=== PATIENT | male | born 1945 | race Caucasian/White ===

== ENCOUNTER → 2020-06-05 14:00 | Outpatient (CLI) | payer MEDICARE, SELFPAY ==
--- NOTE | 2020-06-05 14:06 | CT_ITS ---
STUDY: CT ABDOMEN WITH CONTRAST REASON FOR EXAM: Male, 75 years old. NEOPLASM UNCERTAIN RT KIDNEY BEHAVIOR, CHOLECYSTECTOMY, HX OF COLON CANCER RADIATION DOSAGE (If Supplied By Facility): CTDIvol = ( 40.91 ) mGy, DLP = ( 1465.241 ) mGycm TECHNIQUE: Transaxial images were obtained post I.V. administration of IV 100mL Isovue-300, and without oral contrast. Sagittal and coronal images were reconstructed. Individualized dose optimization techniques were used for this CT. COMPARISON: None. FINDINGS: Mild degree of linear atelectasis and/or scarring at the lung bases. The visualized portions of the heart are within normal limits. Normal liver. There are surgical clips in the gallbladder fossa consistent with a prior cholecystectomy. Normal spleen. There is diffuse atrophy of the pancreas. Normal bilateral adrenal glands. 6.2 mm nonobstructive calculus in the posterior midpole of the right kidney. There is a 3.1 cm x 3.1 cm rounded soft tissue mass in the lower pole of the right kidney. At the same site, there is evidence of a 2 cm x 1.7 cm cyst along the lateral aspect of the right kidney. There is a 1.4 cm x 0.9 cm calculus in the lower pole calyx of the left kidney. Normal visualized stomach. Normal small intestine. Normal colon. The appendix is visualized and appears normal. There is scattered atherosclerotic calcification of the abdominal aorta, without a demonstrated aneurysm. Normal inferior vena cava. Normal retroperitoneum. There is a small umbilical hernia containing fat. There are diffuse degenerative changes of the visualized lumbar spine. CT/Abdomen WITH IV Contrast IMPRESSION: 3.1 cm x 2.1 cm rounded solid mass in the lower pole of the right kidney. A neoplastic process should BE ruled out. Bilateral nonobstructive intrarenal calculi or prominent in the lower pole of the left kidney. Status post cholecystectomy. Electronically Signed: Jake Solis MD at 14:42 EST , Service support ,
[2020-06-05 14:16] LABS: CREATININE FINGERSTICK 1.5 mg/dL (0.70-1.30)
== END ==
PROVIDERS: PCP Family Medicine; Referring Provider Urology; Visit Provider Urology
DX: D41.01 Neoplasm of uncertain behavior of right kidney (principal); N20.0 Calculus of kidney
CPT/HCPCS: 74160; Q9967

== ENCOUNTER 2020-06-14 05:48 | Day surgery (SDC) | payer MEDICARE, SELFPAY ==
--- NOTE | 2020-06-08 13:51 | EKG12_ITS ---
Test Reason : PRE OP Blood Pressure : / mmHG Vent. Rate : 088 BPM Atrial Rate : 357 BPM P-R Int : 000 ms QRS Dur : 160 ms QT Int : 408 ms P-R-T Axes : 000 -20 005 degrees QTc Int : 493 ms Atrial fibrillation Right bundle branch block Abnormal ECG Confirmed by KIM CUEVAS, PARADISE ([id number]), commissioning editor PIETER STRINGER ([id number]) on 06/12/2020 7:53:28 AM Referred By: Aquiles Lepe Confirmed By:ROBYN ALVAREZ MD
--- NOTE | 2020-06-08 14:10 | RAD_ITS ---
STUDY: X-RAY CHEST REASON FOR EXAM: Male, 75 years old. preop/renal mass TECHNIQUE: PA and lateral views of the chest. COMPARISON: None. FINDINGS: Decreased inspiratory effort with vascular crowding, otherwise clear lungs. There is no demonstrated pleural abnormality. Normal size heart. Normal mediastinum and ann. Normal visualized pulmonary arteries. There is atherosclerotic calcification of the aortic arch with tortuosity. Normal visualized thoracic spine. There is degenerative osteoarthritis of the bilateral shoulders. There is no demonstrated abnormality of the visualized soft tissue structures of the upper abdomen. RAD/Chest PA and Lateral IMPRESSION: No acute cardiopulmonary disease. Electronically Signed: Brunilda Hayes MD at 0:54 EST , Service support ,
[2020-06-08 15:23] LABS: Hematocrit 39.9 % (40-54); Hemoglobin 12.7 g/dL (13.0-16.5); Mean Corp Hgb Conc 31.8 g/dL (32-36); Mean Corpuscular Hgb 31.3 pg (27.0-32.0); Mean Corpuscular Volume 98.3 fL (80-94); Mean Platelet Vol. 9.6 fl (6.2-12.0); Platelet Count 252 K/mm3 (150-450); Red Blood Count 4.06 M/mm3 (4.6-6.2); White Blood Count 6.8 K/mm3 (4.4-11.0)
[2020-06-08 15:33] LABS: International Normalized Ratio 1.6; Partial Thromboplast Time 33.8 Seconds (24.1-36.2); Prothrombin Time (Protime)PT. 18.7 SECONDS (11.7-14.9)
[2020-06-08 16:03] LABS: ALB/GLOB Ratio 0.8 RATIO (0.9-2.4); AST(SGOT) 16 U/L (15-37); Alanine Aminotransfer ALT/SGPT 13 U/L (16-61); Albumin, Serum 3.4 g/dL (3.2-5.0); Alkaline Phosphatase 64 U/L (45-117); Anion Gap 4 (5-15); BUN 31 mg/dL (7-18); BUN/Creat Ratio 25.4 RATIO (10-20); Chloride 105 mmol/L (98-107); Creatinine, Serum 1.22 mg/dL (0.70-1.30); EST Glomerular Filtration Rate 62 mL/min (>60); Est Glom Filt Rate - Afr Amer 75 mL/min (>60); Globulin 4.1 g/dL (2.2-4.2); Glucose 88 mg/dL (74-106); Protein, Total 7.5 g/dL (6.4-8.2); Sodium Level 139 mmol/L (136-145)
[2020-06-14] VITALS (14 sets, daily range): BP systolic 88–139; BP diastolic 47–90; PULSE 72–89; RESP 16–18; TEMP 36.3–37.1; O2SAT 94–100; BMI 62.4
[2020-06-14] MEDS: Lactated Ringers 1,000 ML 100 ML IV ×3 (06:44→10:00)
--- NOTE | 2020-06-14 07:30 | KID_PTH ---
PATIENT: MARLEN TAYLOR LOC: [facility] [place] U#:[id number] AGE/SX: 75/M ROOM: RE06/14/[address]: Dr. Aquiles Lepe MD : [id number] BED: DIS: 06/15/2020 SPEC #: [id number] RECD: 06/14/20 11:33 STATUS: WILBERT REIsmael #: [id number] CARYL: 06/14/20 07:[address]: Aquiles Lepe DEPT: SURGICAL PATHOLOGY RECD BY: Kathy Wiggins ENTERED: 06/14/20 13:27 SP TYPE: KIDNEY OTHR DR: Dr. Jonathan Camejo MD Tissues: A - Soft tissues, NOS B - Kidney, NOS Procedures: Surgery Specimen Level IV Surgery Specimen Level V HEADER OPERATION: Laparoscopic robotic assisted partial nephrectomy PRE-OP DIAGNOSIS: Right renal mass TISSUE SUBMITTED: A - Fat over tumor, B - Right renal tumor with fractured capsule MICROSCOPIC DIAGNOSIS A. Fat over tumor: Pieces of mature adipose tissue, negative for carcinoma. B. 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 See cancer summary in the comment section. SJ:rg 06/16/2020 COMMENT KIDNEY CANCER SUMMARY Procedure - partial nephrectomy Specimen laterality - right Tumor site - not specified Tumor size - 2.5 x 2.5 x 2 cm Tumor focality - unifocal Histologic type - clear cell renal cell carcinoma Sarcomatoid features - not identified Rhabadoid features - not identified Histologic grade - grade 1 Tumor necrosis - not identified Tumor extension - tumor limited to kidney Margins - uninvolved by invasive carcinoma. Lymphvascular invasion - not identified Regional lymph nodes - no lymph nodes submitted or found. Distant metastasis - not applicable Pathologic findings in non-neoplastic kidney - focal glomerulosclerosis. - Mild interstitial chronic inflammation. Additional pathologic findings - none identified PATHOLOGIC STAGE: pT1a pNx Mx The above summary is in compliance with [employer] (CAP) Cancer Protocols Checklist and [place] [employer] Committee on Cancer (AJCC), Staging Manual, 8th Ed. MICROSCOPIC DESCRIPTION Slides are reviewed. GROSS DESCRIPTION A - Received in fixative is one container labeled with the patient's name and designated fat over tumor. The specimen consists of three variable sized pieces of adipose tissue measuring in aggregate 4 x 4.5 x 1 cm. Sections do not reveal any mass lesion. Piano Tuner sections are submitted in one cassette. B - Received in fixative is one container labeled with the patient's name and designated right renal tumor with fractured capsule. The specimen consists of a nodule, partially disrupted, measuring 2.5 x 2 x 2.5 cm. Also present in the container are multiple detached fragments of yellowish-orange material most likely contents from the nodule measuring in aggregate 3.5 x 3 x 1.5 cm. The entire specimen weighs 11.6 gm. The outer surface of the nodule is inked black. The nodule is serially sectioned and completely replaced by the yellowish-orange nodule. Areas of hemorrhage, necrosis or cystic degeneration area not identified. Piano Tuner sections are submitted in seven cassettes as follows: 16? entire nodule, 7??detached fragments of tissue. / SJ:rg 06/15/2020 TC:0 CPT: 87359, 95136
--- NOTE | 2020-06-14 07:42 | PCM.HP.STD ---
History of Present Illness Date of Admission: 06/14/20 Chief Complaint: right renal mass The patient is a 75 year old Male with a enlarging right renal mass morbidly obese, plan to proceed with a right partial neprhectomy. Past Medical History Allergies No Known Allergies Allergy (Verified 06/07/20 14:23) Home Medications: Ambulatory Orders Medication Instructions Recorded Hydrochlorothiazide [Hctz] 25 mg PO DAILY 06/07/20 Lisinopril [Zestril] 20 mg PO QHS 06/07/20 Mercaptopurine [Purinethol] 100 mg PO DAILY PRN 06/07/20 Mesalamine [Mesalamine ER] 4 tab PO DAILY 06/07/20 Metoprolol Succinate [Toprol Xl] 50 mg PO QHS 06/07/20 Naproxen Sodium [Aleve] 440 mg PO DAILY 06/07/20 Rivaroxaban [Xarelto] 20 mg PO QHS 06/07/20 Surgical History: no surgical history Smoking Status: Former smoker Tobacco Use: Non-smoker Review of Systems Constitutional: Denies: Chills, Fever, Weight Change HEENT: Denies: Head Aches, Sinus Congestion, Sinus Drainage Cardiovascular: Denies: Chest Pain, Palpitations Respiratory: Denies: Cough, Shortness of breath at rest, Sputum production Gastrointestinal: Denies: Abdominal Pain, Nausea, Vomiting Genitourinary: Denies: Dysuria Musculoskeletal: Denies: Joint Pain, Joint Tenderness Skin: Denies: Rash, Wounds Neurological: Denies: Numbness, Tingling, Focal weakness Psychiatric: Denies: Anxiety, Depression, Homicidal Ideations, Suicidal Ideations Hematologic/ Lymphatic: Denies: Easy Bruising, Easy Bleeding VTE Information - Inpt Only VTE Present on Admission: No VTE Mechan Device Prophylaxis: SCD's - Physical Exam Vitals/I&O's: Vital Signs Temp Pulse Resp BP Pulse Ox 98.7 F 89 18 111/90 H 100 06/14/20 06:31 06/14/20 06:31 06/14/20 06:31 06/14/20 06:31 06/14/20 06:31 Oxygen Delivery Method Room Air Weight: 197.313 kg Body Mass Index (BMI) 62.4 General: Alert, Oriented x3, Cooperative HEENT: Atraumatic, PERRLA, EOMI, Normocephalic Neck: Supple, No JVD, Negative Carotid Bruits Lungs: Clear to auscultation, Normal air movement Cardiovascular: Regular rate, No murmurs Abdomen: Bowel Sounds Present, Soft, Non Tender Extremities: No edema, Capillary Refill Less than 3 Seconds Skin: No rashes, No breakdown Musculoskeletal: No Tenderness to Palpation of Joints or Extremities Neurological: Cranial nerves II-XII grossly intact Psych/Mental Status: Normal Affect, Appropriate Current Medications Cefazolin Sodium 3 gm/ Sodium (Chloride) 115 mls @ 150 mls/hr IV PREOP ONE Stop: 06/14/20 07:45 Lactated Ringer's () 1,000 mls @ 100 mls/hr IV .Q10H JONA Last Admin: 06/14/20 06:44 Dose: 100 mls/hr Documented by: Lactated Ringer's () 1,000 mls @ 100 mls/hr IV .Q10H JONA Last Admin: 06/14/20 06:45 Dose: 100 mls/hr Documented by: Assessment/Plan 75 yo male plan to proceed with a laparoscopic right robotic partial nephrectomy possible open partial.
--- NOTE | 2020-06-14 07:47 | DCINST_ITS ---
Discharge Diet: Light diet - advance as tolerated Discharge Activity: May Shower Call your doctor if your incision/area has: Continuous Slow Oozing, Sudden Increased Bleeding, Increased Pain/ Swelling, Increased Redness, Foul Smelling Discharge, Swelling at the incision site Call your doctor if you observe: Fever of 101 or Higher Allergies/Adverse Reactions: Allergies No Known Allergies Allergy (Verified 06/07/20 14:23) Medications to take at Discharge Hydrochlorothiazide [Hctz] 25 mg PO DAILY 06/07/20 Lisinopril [Zestril] 20 mg PO QHS 06/07/20 Mercaptopurine [Purinethol] 100 mg PO DAILY PRN 06/07/20 Mesalamine [Mesalamine ER] 4 tab PO DAILY 06/07/20 Metoprolol Succinate [Toprol Xl] 50 mg PO QHS 06/07/20 Naproxen Sodium [Aleve] 440 mg PO DAILY 06/07/20 Rivaroxaban [Xarelto] 20 mg PO QHS 06/07/20 Orders to be completed after discharge: T&S with Crossmatch, Red Cells Time Frame: 06/08/20, Location: None Selected Primary Care Physician: Jonathan Camejo MD [Primary Care Provider] - Test Results: Test results from this visit will be discussed in further detail at your follow- up appointment, if applicable. Please Follow Up With: Aquiles Lepe MD When: in 2 weeks, please call to make an appointment.
[2020-06-14] MEDS: Bupivacaine Mpf 0.5% 30 ML VIAL (08:30)
--- NOTE | 2020-06-14 10:40 | OP.PCM_ITS ---
Report of Operation Date of Procedure: 06/14/20 Pre-Operative Diagnosis: Right renal mass Post-Operative Diagnosis: Same Surgery/Procedure Performed:: Laparoscopic robotic assisted right partial nephrectomy Description of Surgical Findings:: 75-year-old male with morbid obesity BMI of 62 is found to have an enlarging mass in the right kidney mass was now measuring close to 2.5 cm in size had grown about a centimeter this past year and the mass appeared to be a renal cell carcinoma so because of the fact that they are growing mass could become malignant and spread we talked about proceeding with a partial nephrectomy in the right kidney is main challenge was his morbid obesity which is due to his immobility from bilateral knees osteoarthritis. 75-year-old male was taken back to the operating room and transferred onto the table we had to ensure the table was appropriate for bariatric size we put extensions on the table. Patient underwent general anesthetic with intubation he was then placed full lateral position we secured the patient to the table secured the arms and legs and we placed an axillary roll. The right flank was then prepped and draped in usual sterile fashion. Made a small incision in the right flank dissected down to the fascia placed a Veress needle into the peritoneal cavity insufflated the peritoneal cavity with CO2 gas I then placed my camera trocar right arm trocar and second left arm trocar and then an air seal port for the biology laboratory assistant. My plan for approach for this tumor was to do a direct approach with the off clamp resection given his morbid obesity to avoid having to do a complete dissection of the renal hilum which could be very difficult. I first incised the white line of Toldt and reflected the colon off the kidney I then identified the Gerota's fascia and incised the dura fascia and then got down to the fascia that was overlying the kidney and in the fat sticking onto the kidney he did have a lot of sticky fat of the kidney parenchyma and renal capsule. I then dissected the kidney free to freed off the lateral wall dissected superiorly to freed off the superior wall and superior attachments and inferior attachments and then the rolled the kidney towards me this allowed me to identify the tumor that was then protruding posterior to the kidney and the inferior pole. We then used a laparoscopic ultrasound to identify the tumor the tumor was marked on the edges we then remove the fat overlying the tumor and this fat was sent off as a separate specimen I then proceeded with an uncle off clamp resection of the tumor I first placed a stay stitch to secure a suture at the edge of the resection site and basically got to the enucleation plane and very meticulously dissected the tumor off the kidney following his enucleation plane as we went inferiorly there was 1 small santo lation of the tumor capsule very minimal spillage of tumor this was immediately recognized course was corrected and then we continued underneath the tumor until the entire tumor was removed but there was a disruption of the capsule of the tumor. The tumor was immediately placed in Endo Catch bag all the little tumor pieces were also put in the intra-Endo Catch bag in the mid and then we went back and using the 0 Vicryl stitch stitch we then ran the resection site closing to 2 edges together using Humalog sliding clips to reapproximate the edges of resection with a lot of tension we rounded the edge of resection twice Humalog 0 Vicryl stitch inferiorly to superiorly and then superiorly to inferiorly after we did this there was no more bleeding the control of the bleeding does blood vessels. During the resection there was about 300 cc blood loss but then the blood loss stopped to irrigate out the kidney we irrigate out the area of the tumor in the kidney we placed FloSeal in the kidney resection site and FloSeal superiorly on some minor blood vessels that were superior to the kidney and then we extracted the tumor through one of the 10/12 ports. I then closed both the 10/12 ports with a Eddie Garcia stitch we checked the kidney there was no bleeding from the resection site. And then we removed all the ports and the incisions were being closed. The specimen was sent off to the pathologist and we let the pathologist know that there was a tumor violation of ruptured capsule during resection of the tumor but on gross inspection and inspection the base of the resection site there was no viable tumor left and was a complete removal of the tumor. Patient is currently undergoing reversal of his anesthetic. Drains: cid Estimated Blood Loss (mL): 350cc - Admit VTE Documentation VTE Present on Admission: No VTE Mechan Device Prophylaxis: SCD's
[2020-06-14 11:32] LABS: Hematocrit 36.2 % (40-54); Hemoglobin 12.1 g/dL (13.0-16.5); Mean Corp Hgb Conc 33.4 g/dL (32-36); Mean Corpuscular Hgb 32.3 pg (27.0-32.0); Mean Corpuscular Volume 96.5 fL (80-94); Mean Platelet Vol. 9.5 fl (6.2-12.0); Platelet Count 200 K/mm3 (150-450); RBC Distribution Width CV 18.4 % (11.6-14.6); RBC Distribution Width SD 63.1 fl (35.1-43.9); Red Blood Count 3.75 M/mm3 (4.6-6.2); White Blood Count 7.1 K/mm3 (4.4-11.0)
[2020-06-14 11:40] LABS: Anion Gap 6 (5-15); BUN 25 mg/dL (7-18); BUN/Creat Ratio 21.4 RATIO (10-20); Calcium,Total 8.5 mg/dL (8.5-10.1); Chloride 103 mmol/L (98-107); Creatinine, Serum 1.17 mg/dL (0.70-1.30); EST Glomerular Filtration Rate 65 mL/min (>60); Est Glom Filt Rate - Afr Amer 79 mL/min (>60); Estimated Creatinine Clearance 58.06 ml/min; Glucose 139 mg/dL (74-106); Potassium 4.3 mmol/L (3.5-5.1); Sodium Level 137 mmol/L (136-145)
[2020-06-14] MEDS: 0.45% Normal Saline 1,000 ML 75 ML IV (15:14)
--- NOTE | 2020-06-14 15:37 | NURSING ---
RN CM Assessment Introduced role of RN CM to patient.? Patient is alert, oriented and able?to participate in RN CM Assessment. ?Care providers, pharmacy, and demographics verified. Admit Dx: Rt Partial Nephrectomy Re-Admit: No Barriers/Issues: None. Patient has three sons that live close and are able to assist with care needs if needed. One of the sons and his family live approx 700ft from patient and are nurses. Patient PCP lives down the street and checks on patient at home sometimes. PCP: Jonathan Camejo Specialists: Cardio- Preferred Pharmacy: [facility] Insurance: [place] [employer] Rx Benefit:?Yes LNOK: Patience Schaeffer LW/HPOA: States has both completed, aware if brought in- will have a copy scanned on file. HPOA- Patience Schaeffer. Living Arrangements:? Lives with in a 2SH- Farm house. Bedroom on gnd level. Has a ramp to enter home, 1 step inside home to kitchen-with ramp. See above note for social support. ADL?s: Ambulates in home with walker, Will use WC in morning, when going out to garage, and for outside of home. Independent with ADLs. Transportation: Patient drives. only drives short distances to [place]. Upon DC- Son Kenneth will most likely transport patient, or other son's Bill or Oleg. DME: Four walkers, Moe WC, Large shower with built in seat w/hand rails, SCDs, CPAP- Pcp's office. High toilet w/ hand rails. HHC: Past in [place] SNF: None Goal: Home and does not think will have any needs. Denies any issues, questions, or concerns with DC planning at this time. Aware RNCM will remain available for any emerging needs. DC PLAN: Home with no anticipated needs identified at this time. WENDY Owen
[2020-06-14] MEDS: Acetaminophen 500 MG Tablet PO (15:42)
[2020-06-14] MEDS: Ketorolac 15 MG/ML Vial IV (17:28)
[2020-06-14] MEDS: 0.9% Saline Lock 10 ML Syringe IV (17:28)
[2020-06-14] MEDS: Docusate Sodium 100 MG Capsule PO (22:27)
[2020-06-14] MEDS: Lisinopril 20 MG Tablet PO (22:28)
[2020-06-14] MEDS: Metoprolol(XL)Succ 50 MG Tablet PO (22:28)
[2020-06-15 02:15] VITALS: BP 115/60; PULSE 79; RESP 16; TEMP 36.4; O2SAT 100
[2020-06-15] MEDS: 0.45% Normal Saline 1,000 ML 75 ML IV (04:40)
[2020-06-15] MEDS: Enoxaparin 40 MG/0.4 ML Syringe SC (05:43)
[2020-06-15 05:55] LABS: Hematocrit 32.8 % (40-54); Hemoglobin 10.7 g/dL (13.0-16.5); Mean Corp Hgb Conc 32.6 g/dL (32-36); Mean Corpuscular Hgb 32.1 pg (27.0-32.0); Mean Corpuscular Volume 98.5 fL (80-94); Mean Platelet Vol. 9.1 fl (6.2-12.0); POSITIVE MORPHOLOGY YES; Platelet Count 200 K/mm3 (150-450); RBC Distribution Width CV 18.7 % (11.6-14.6); RBC Distribution Width SD 65.8 fl (35.1-43.9); Red Blood Count 3.33 M/mm3 (4.6-6.2); White Blood Count 8.6 K/mm3 (4.4-11.0)
[2020-06-15 06:06] LABS: Scan Indicated on CBC? Y/N YES- FLAGS NOTED
[2020-06-15 06:28] LABS: Anion Gap 6 (5-15); BUN 27 mg/dL (7-18); BUN/Creat Ratio 20.8 RATIO (10-20); Calcium,Total 8.1 mg/dL (8.5-10.1); Chloride 104 mmol/L (98-107); EST Glomerular Filtration Rate 58 mL/min (>60); Est Glom Filt Rate - Afr Amer 70 mL/min (>60); Estimated Creatinine Clearance 52.25 ml/min; Glucose 104 mg/dL (74-106); Potassium 4.4 mmol/L (3.5-5.1); Sodium Level 136 mmol/L (136-145)
[2020-06-15 06:32] LABS: Differential Comment SCANNED
[2020-06-15 08:44] VITALS: BP 107/42; PULSE 75; RESP 18; TEMP 36.7; O2SAT 97
[2020-06-15] MEDS: Docusate Sodium 100 MG Capsule PO (08:54)
[2020-06-15] MEDS: hydroCHLOROthiazide 25 MG Tablet PO (08:54)
[2020-06-15] MEDS: Pantoprazole Sodium 20 MG Tablet PO (08:54)
== END 2020-06-15 13:27 | disposition home or self-care (01) ==
LOC: SDC 05:49 → MS3 06-15 08:42
PROVIDERS: Anesthesiology; PCP Family Medicine; Referring Provider Urology; Visit Provider Urology
PROC: (CPT 50543; principal; 2020-06-14 07:10)
DX: C64.1 Malignant neoplasm of right kidney, except renal pelvis (principal); N20.0 Calculus of kidney; I45.10 Unspecified right bundle-branch block; I48.91 Unspecified atrial fibrillation; I10 Essential (primary) hypertension; E66.01 Morbid (severe) obesity due to excess calories; Z68.44 Body mass index [BMI] 60.0-69.9, adult; Z20.822 Contact with and (suspected) exposure to COVID-19; Z79.01 Long term (current) use of anticoagulants; Z79.899 Other long term (current) drug therapy; Z87.891 Personal history of nicotine dependence
CPT/HCPCS: 50543; 36415; 71046; 80048; 80053; 85027; 85610; 85730; 86850; 86900; 86901; 87426; 88305; 88307; 93005; C9803; J7120; A4216; J2405

== ENCOUNTER → 2020-09-27 08:31 | Outpatient (CLI) | payer MEDICARE, SELFPAY ==
[2020-06-14 06:31] VITALS: BMI 62.4
--- NOTE | 2020-09-27 08:52 | CT_ITS ---
STUDY: CT ABDOMEN WITH CONTRAST REASON FOR EXAM: Male, 75 years old. MALIGNANT NEOPLASM OF RIGHT KIDNEY RADIATION DOSAGE (If Supplied By Facility): CTDIvol = ( 31.94 ) mGy, DLP = ( 1906.94 ) mGycm TECHNIQUE: Transaxial images were obtained post I.V. administration of IV 100mL Isovue-300, and without oral contrast. Sagittal and coronal images were reconstructed. Individualized dose optimization techniques were used for this CT. COMPARISON: Comparison is made with prior study dated 06/05/2020. FINDINGS: Stable mild degree of scarring along the posterior aspect of the right middle lobe abutting the right major fissure. The visualized portions of the heart are within normal limits. Normal liver. There are surgical clips in the gallbladder fossa consistent with a prior cholecystectomy. Normal spleen. Normal pancreas. Normal bilateral adrenal glands. There is a 6.6 mm calculus in the posterior lower pole calyx of the right kidney. The previously seen soft tissue mass in the lower pole of the right kidney as been resected. A surgical defect is seen in the lateral inferior pole of the right kidney with mild increased markings in the surrounding perinephric fat in keeping with postoperative change. There is a 1.2 cm calculus in the lower pole calyx of the left kidney. Normal visualized stomach. Normal small intestine. Normal colon. The appendix is visualized and appears normal. There is diffuse atherosclerotic calcification of the abdominal aorta and its major visceral branches, without a demonstrated aneurysm. Normal inferior vena cava. Normal retroperitoneum. There is a small umbilical hernia containing fat. There are diffuse degenerative changes of the visualized lumbar spine. CT/Abdomen WITH IV Contrast IMPRESSION: Status post resection of the soft tissue nodule in the lower pole of the right kidney. The remainder of the examination is unchanged. Electronically Signed: Jake Solis MD at 10:25 EDT , Service support ,
[2020-09-27 09:16] LABS: CREATININE FINGERSTICK 1.2 mg/dL (0.70-1.30); EGFR FINGERSTICK > 60.0000 mL/min (>60)
== END ==
PROVIDERS: PCP Family Medicine; Referring Provider Urology; Visit Provider Urology
DX: C64.1 Malignant neoplasm of right kidney, except renal pelvis (principal)
CPT/HCPCS: 74160; Q9967

== ENCOUNTER → 2021-10-11 | Outpatient (CLI) | payer MEDICARE, SELFPAY ==
--- NOTE | 2021-10-11 12:10 | RAD_ITS ---
INDICATION: NEOPLASM OF KIDNEY EXAMINATION/TECHNIQUE: X-RAY - AP and lateral views of chest COMPARISON: AP chest x-ray from 06/08/2020. FINDINGS: LINES/DEVICES: None. LUNGS: No overt pulmonary edema or focal airspace consolidation. No sizable pleural effusion. No pneumothorax detected. MEDIASTINUM AND CARDIOVASCULAR STRUCTURES: Heart size within normal limits for imaging technique. Slightly tortuous thoracic aorta again noted. BONES AND SOFT TISSUES: No acute findings. RAD/Chest PA and Lateral IMPRESSION: No radiographic evidence of acute cardiopulmonary disease. Electronically Signed: Surendra Huynh MD at 5:00 EDT ,
== END | disposition home or self-care (01) ==
LOC: LAB 12:02 → RAD 12:05
PROVIDERS: PCP Family Medicine; Visit Provider Urology
DX: Z08 Encounter for follow-up examination after completed treatment for malignant neoplasm (principal); Z85.528 Personal history of other malignant neoplasm of kidney
CPT/HCPCS: 71046